=== PATIENT | male | born 2000 | race African-American/Black ===

== ENCOUNTER 2023-10-28 19:15 | Emergency (ER) | payer OTHER ==
[2023-10-28] MEDS ORDERED: SILVER SULFADIAZINE 1% 50 GM TOP ONE ×2 (19:34→19:46)
[2023-10-28] MEDS ORDERED: TDAP (DIPHTH,PERTUSS(ACELL),TET VAC) 0.5 ML VIAL IMVAC ONE (19:34)
[2023-10-28] MEDS ORDERED: CODEINE 30MG/APAP 300MG TAB ONE (19:45)
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
[2023-10-28 20:56] VITALS: TEMP 98.2
[2023-10-28 20:57] VITALS: BP 128/76; O2SAT 99
== END 2023-10-28 20:35 | disposition home or self-care (01) ==
LOC: ER 19:15
DX: T25.211A Burn of second degree of right ankle, initial encounter (principal); T25.212A Burn of second degree of left ankle, initial encounter; T31.0 Burns involving less than 10% of body surface
CPT/HCPCS: 96372; 99284